=== PATIENT | male | born 1985 | race African-American/Black ===

== ENCOUNTER 2018-06-29 08:52 | Emergency (ER) | payer OTHER | END 2018-06-29 09:43 | disposition home or self-care (01) | LOC: M ED 08:52 | DX: M54.32 Sciatica, left side (principal); J45.909 Unspecified asthma, uncomplicated | CPT/HCPCS: 99282 ==

== ENCOUNTER → 2018-08-18 | Outpatient (CLI) | payer OTHER ==
[~2018-08-18] MED LIST: METHACHOLINE KIT (J7674) INH
== END ==
LOC: M CARPUL 14:43
DX: R06.00 Dyspnea, unspecified (principal)